=== PATIENT | female | born 1945 ===

== ENCOUNTER 2020-06-28 09:10 | Outpatient (CLI) | payer OTHER | END 2020-06-28 09:21 | disposition home or self-care (01) | LOC: NUCLEAR 09:10 | PROVIDERS: ATTEND Internal Medicine Sports Medicine | DX: I25.10 Atherosclerotic heart disease of native coronary artery without angina pectoris (principal); R07.89 Other chest pain | CPT/HCPCS: 78452; 93017; A9500; J0153 ==